=== PATIENT | male | born 1950 | race Caucasian/White ===

== ENCOUNTER → 2019-03-19 13:45 | Emergency (ER) | payer MEDICARE, BC ==
[2019-03-19 13:54] VITALS: BP 160/132
--- OUTSIDE RECORDS SUMMARY | 2019-03-19 14:03 | XMS REPORT | Continuity of Care Document ---
:1950 External Reference #:[id number] Author Name CARLOS Vogt Address [address] [place] [address] Care Team Providers Name Role Phone Rebecca Ludwig M.D. Care Team Information Water Pipe Installer Unavailable Rebecca Ludwig M.D. Primary Care Physician Unavailable Payers Date Identification Numbers Payment Provider Subscriber Policy Number: [id number] Medicare Enmanuel Swanson PayID: [id number] [address] [place] [address] Policy Number: [id number] [facility] Teresa Swanson PayID: [id number] [address] [address] [place] [address] Problems Active Problems Provider Date Diabetes mellitus Artur Conway MD Onset: 10/30/2018 Microscopic hematuria Artur Conway MD Onset: 11/27/2018 Kidney stone Artur Conway MD Onset: 11/27/2018 Neurogenic bladder rAtur Conway MD Onset: 11/27/2018 Increased frequency of urination Artur Conway MD Onset: 10/30/2018 Low back pain Artur Conway MD Onset: 10/30/2018 Difficulty passing urine Artur Conway MD Onset: 10/30/2018 Family history of prostate cancer Artur Conway MD Onset: 10/30/2018 Nocturia Artur Conway MD Onset: 10/30/2018 Dribbling of urine Artur Conway MD Onset: 10/30/2018 Urgent desire to urinate Artur Conway MD Onset: 10/30/2018 Family History Date Family Member(s) Observation Comments Father Heart Disease Mother Cancer Social History Type Date Description Comments Sex Unknown Marital Status Patient is Occupation Patient is retired Tobacco Use Start: Unknown Patient is a non-smoker Smoking Status Reviewed: 02/27/19 Patient is a non-smoker ETOH Use Currently consumes alcohol Allergies, Adverse Reactions, Alerts Active Allergies Reaction Severity Comments Date Lyrica Hives 11/21/2018 Inactive Allergies NKDA 10/30/2018 Medications Active Medications SIG Qnty Indications Ordering Provider Date Gabapentin Rebecca Ludwig, 300mg Capsules M.D. Atenolol Jamila Cervantes 25mg Tablets Flex HERNANDEZ Chlorthalidone Jamila Cervantes 25mg Tablets Flex HERNANDEZ Xarelto Take 1 Tablet By Unknown 20mg Tablets Mouth Every Day Duloxetine HCL Take 1 Capsule Unknown 60mg Caps DR By Mouth Two Part Times Daily Vitamin D 80374 units one Unknown (Cholecalciferol) time weekly 1000Unit Capsules Vitamin B Complex 1 tablet by Unknown Tablets mouth daily. Aspir-81 1 by mouth every Unknown 81mg Tablets DR day Tizanidine HCL Rebecca Ludwig, 2mg Tablets M.D. Hydrocodone-Acetaminophe Take 1 Tablet By Unknown n Mouth Three 10-325mg Tablets Times Daily May Take 4TH Tablet If Needed Maximum Daily Dose Of 4 Per Day History Medications Oxybutynin Chloride 1 by mouth every 90tabs [facility] 12/06/2018 - ER day MD Zoraida 02/26/2019 5mg Tablets ER 24HR Sulfamethoxazole/Trim 1 by mouth 30tabs [facility] 11/27/2018 - ethoprim DS MD Zoraida 11/28/2018 800-160mg Tablets Myrbetriq 1 by mouth every 90tabs R35.0 [facility] 11/27/2018 - 50mg Tablets day MD Zoraida 12/06/2018 ER 24HR Amoxicillin 1 cap orally in [facility] 11/21/2018 - 250mg office for MD Zoraida 11/22/2018 Capsules procedure Bactrim DS 1 by mouth twice 5tabs [facility] 11/21/2018 - 800-160mg a day for a total MD Zoraida 11/26/2018 Tablets of 5 pills. Baclofen Rebecca Ludwig, - 10mg Tablets M.D. 11/26/2018 Oxycodone HCL Rebecca Ludwig, - 10mg M.D. 11/26/2018 Tablets Metformin HCL ER Take 2 Tablets By Unknown - 500mg Mouth Two Times 11/26/2018 Tablets ER 24HR Daily Nortriptyline HCL Take 1 To 3 Unknown - 10mg Capsule By Mouth 11/26/2018 Capsules Every Night AT Bedtime as Needed For Sleep Amoxicillin 1 cap orally in Artur H - 250mg office for MD Zoraida 11/27/2018 Capsules procedure Vital Signs Date Vital Result Comment 02/27/2019 8:36am Height 66 inches 5'6" Weight 247.00 lb Weight 112.039 kg BMI (Body Mass Index) 39.9 kg/m2 BP Systolic 97 mmHg BP Diastolic 66 mmHg Heart Rate 56 /min Post Void Residual ml 0 Bladder Scanner 11/27/2018 8:15am Height 66 inches 5'6" Weight 253.00 lb Weight 114.761 kg BMI (Body Mass Index) 40.8 kg/m2 BP Systolic 147 mmHg BP Diastolic 85 mmHg Heart Rate 85 /min Respiratory Rate 16 /min Post Void Residual ml 3 Bladder Scanner, Indication: 11/21/2018 8:37am Height 66 inches 5'6" Weight 269.00 lb Weight 122.018 kg BMI (Body Mass Index) 43.4 kg/m2 BP Systolic 110 mmHg BP Diastolic 68 mmHg Heart Rate 75 /min Respiratory Rate 16 /min Post Void Residual ml 9 Bladder Scanner, Indication: frequency 11/09/2018 12:32pm Post Void Residual ml 7ccRAD 10/30/2018 8:15am Height 66 inches 5'6" Weight 267.00 lb Weight 121.111 kg BMI (Body Mass Index) 43.1 kg/m2 BP Systolic 117 mmHg BP Diastolic 75 mmHg Heart Rate 73 /min Post Void Residual ml 60 Results Test Date Facility Test Result H/L Range Note 230 Ua Routine 02/27/2019 [facility] Ua Glucose Negative REF TO DR ADDRESS ON ORDER FOR (315)- - Ua Protein Negative Ua Nitrite Negative Ua Leuko Negative Ua Blood Trace-intact * Ua Color Not Entered Ua Ketones Negative Ua Clarity Not Entered Ua Specific [place] 1.015 1.003-1.030 Ua PH 7.0 5.0-7.5 Ua Bilirubin Negative Ua Urobilinogen 0.2 E.U./dL 0.0-1.0 Urine Cytology 11/30/2018 [facility] Clinical History urgency. Recent N 1 [address] [facility] <SEE NOTE> JAMIE Acosta [address] [phone] Specimen Adequacy Satisfactory for <SEE NOTE> N 2 BodySite Voided - Clean C <SEE NOTE> N 3 Gross Description Received in a sp <SEE NOTE> N 4 Microscopic Description Moderate numbers <SEE NOTE> N 5 Final Diagnosis NEGATIVE FOR HIG <SEE NOTE> N 6 CPTCode 85317 N PDF Report SEE IMAGE 230 Ua Routine 11/27/2018 [facility] Ua Glucose Negative REF TO DR ADDRESS ON ORDER FOR (315)- - Ua Protein Trace * Ua Nitrite Negative Ua Leuko Trace * Ua Blood 2+ * Ua Color Not Entered Ua Ketones Negative Ua Clarity Not Entered Ua Specific [place] >=1.030 1.003-1.030 Ua PH 6.0 5.0-7.5 Ua Bilirubin 1+ * Ua Urobilinogen 0.2 E.U./dL 0.0-1.0 Xray 11/22/[address] Ivu 2mm rrc (315)- - Laboratory test 11/21/2018 [facility] Urine Culture SPECIMEN no growth 7 finding POB FX# [id number] DESCRIP <SEE [phone] NOTE> 230 Ua Routine 11/21/2018 [facility] Ua Glucose Negative REF TO DR ADDRESS ON ORDER FOR (315)- - Ua Protein 3+ * Ua Nitrite Positive * Ua Leuko 3+ * Ua Blood 3+ * Ua Color Not Entered Ua Ketones Trace * Ua Clarity Not Entered Ua Specific [place] 1.025 1.003-1.030 Ua PH 6.5 5.0-7.5 Ua Bilirubin 2+ * Ua Urobilinogen 1.0 E.U./dL 0.0-1.0 230 Ua Routine 11/21/2018 [facility] Ua Glucose Negative REF TO DR ADDRESS ON ORDER FOR (315)- - Ua Protein Negative Ua Nitrite Negative Ua Leuko Negative Ua Blood 2+ * Ua Color Not Entered Ua Ketones Negative Ua Clarity Not Entered Ua Specific [place] 1.020 1.003-1.030 Ua PH 7.0 5.0-7.5 Ua Bilirubin Negative Ua Urobilinogen 0.2 E.U./dL 0.0-1.0 Xray 11/09/2018 [facility] US Pelvic 41g, 7cc PVR [address] [facility] ([place] [address] [place]) [phone] 107 Ua Routine 10/30/2018 [facility] Ua Glucose Negative REF TO DR AKIN ON ORDER FOR (171)- - Ua Protein Negative Ua Nitrite Negative Ua Leuko Negative Ua Blood Negative Ua Color Not Entered Ua Ketones Negative Ua Clarity Not Entered Ua Specific [place] 1.025 1.003-1.030 Ua PH 7.0 5.0-7.5 Ua Bilirubin Negative Ua Urobilinogen 0.2 E.U./dL 0.0-1.0 BUN And Creatinine 09/26/2018 Outside Facility BUN - Urea Nitrogen 12 6- 26 (269)- - Creatinine 0.7 0.5-1.4 Laboratory test finding 06/28/2018 Outside Facility PSA 2.480 0.000- 4.000 (315)- - 1 urgency. Recent catheter. cysto: cath change only R35.0 R31.29 2 Satisfactory for evaluation. 3 Voided - Clean Catch 4 Received in a specimen container, labeled with the patients name and , is Clear Yellow fluid consistent with urine, measuring approximately 90 ml. 5 Moderate numbers of red cells present. Moderate numbers of neutrophils present. 6 NEGATIVE FOR HIGH-GRADE UROTHELIAL CARCINOMA. 7 SPECIMEN DESCRIPTION URINE, COLLECTION METHOD NOT SPECIFIED CULTURE RESULTS NO GROWTH REPORT STATUS FINAL 11/22/2018 Procedures Date Code Description Status 02/27/2019 83088 Bladder Scan, Post Voiding Residual Urine Completed 11/27/2018 21084 Cystourethroscopy, Separate Procedure Completed 11/27/2018 28786 Bladder Scan, Post Voiding Residual Urine Completed 11/27/2018 73427 Urodynamics, Complex Uroflowmetry Eg Calibrated Electronic Completed Office 11/22/2018 65171 Bladder Irrigation, Simple Lavage And/Or Instillation Completed 11/21/2018 60850 Bladder Scan, Post Voiding Residual Urine Completed 11/21/2018 12739 Urodynamics, Voiding Pressure Studies Intra Abdominal Completed Global 11/21/2018 05788 Urodynamics, Electromyography Studies EMG Of Anal Or Completed Urethral S 11/21/2018 61160 Urodynamics, Complex Uroflowmetry Eg Calibrated Electronic Completed Office 11/21/2018 35539 Complex Cystometrogram, With Voiding Pressure Studies Completed Global 11/09/2018 84591 Ultrasound- Pelvic Limited Tech Completed 11/09/2018 79530 Ultrasound- Pelvic Limited Tech Completed 10/30/2018 67758 Bladder Scan, Post Voiding Residual Urine Completed Encounters Type Date Location Provider Dx Diagnosis Office Visit 02/27/2019 [facility]/ Octavio Maldonado, R35.0 Frequency of 8:40a Urology PA micturition M54.5 Low back pain N20.0 Calculus of kidney N40.1 Benign prostatic hyperplasia with lower urinary tract symp Office Visit 11/27/2018 8:20a [facility]/ Octavio Almanza R35.0 Frequency of Urology MD Zoraida micturition M54.5 Low back pain R35.1 Nocturia Z80.42 Family history of malignant neoplasm of prostate R39.15 Urgency of urination 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, not elsewhere classified N20.0 Calculus of kidney R31.29 Other microscopic hematuria Office Visit 11/21/2018 2:00p [facility]/ Octavio Woods Nurse R39.15 Urgency of Urology urination R35.0 Frequency of micturition Office Visit 10/30/2018 8:20a [facility]/ Octavio Almanza R39.15 Urgency of Urology MD Zoraida urination N39.43 Post-void dribbling R35.1 Nocturia Z80.42 Family history of malignant neoplasm of prostate R39.198 Other difficulties with micturition M54.5 Low back pain R35.0 Frequency of micturition Plan of Treatment Future Appointment(s):07/16/2019 9:40 am - [facility] at [facility] Ocybibw10/11/2019 9:00 am - [facility] RODRIGUE[facility] at [facility]/ [facility] Ezhjboy40/19/2019 8: 40 am - CARLOS Vogt at [facility]/ [facility] Sqvlcfc3002/27/2019 - Sia Maldonado PAR35.0 Frequency of micturitionComments:Patient's frequency has improved. No retention noted via bladder scanner. He is no longer taking Myrbetriq. I did advise patient that Myrbetriq takes longer to work than a few days but as he feels symptoms have resolved will not pursue further. All questions addressed to patient's satisfaction.M54.5 Low back painComments: Chronic for patient. No CVA tenderness. Not likely to be in nature.N20.0 Calculus of kidneyComments:X-ray reports were personally reviewed during the office visit today. CT IVU in November was noting a 2mm right renal calculi. Reviewed these findings again with patient today. Encouraged to increase water intake and avoid excessive salt intake. Patient will have renal U/S prior to next scheduled appointment to evaluate for worsening stone burden.N40.1 Benign prostatic hyperplasia with lower urinary tract symptomsComments:PSA/AGAPITO are up to date at last visit. Patient to follow up in July to evaluate at that time.AllFollow up:-- Follow up in July with renal U/S and psa prior
== END | disposition left against medical advice (07) ==
LOC: ED 13:45
DX: R52 Pain, unspecified (principal); Z53.21 Procedure and treatment not carried out due to patient leaving prior to being seen by health care provider

== ENCOUNTER 2019-09-26 06:03 | Day surgery (SDC) | payer MEDICARE, BC ==
[~2019-09-26 06:03] MED LIST: Buffered Lidocaine 1% SYRIN* 1 ML/SYRINGE INTRADERM ONE; Lactated Ringers 1000 ML Bag* 1,000 ML IV SCH
[2019-09-26] MEDS ORDERED: ceFAZolin 2 GM PREMIX in ORs 2 GM/50 ML BAG ONE (06:44)
[2019-09-26] MEDS ORDERED: Propofol* 10 MG/ML 20 ML BTL ONE (06:47)
[2019-09-26] MEDS ORDERED: EPHEDrine (Pressors)* 50 MG/ML VIAL ONE (06:47)
[2019-09-26] MEDS ORDERED: Succinylcholine* 20 MG/ML 10 ML VIAL ONE (06:47)
[2019-09-26] MEDS ORDERED: fentaNYL* 50 MCG/ML 2 ML VIAL (100 MCG VIAL) ONE (06:47)
[2019-09-26] MEDS ORDERED: Midazolam* 1 MG/ML 2 ML VIAL (2 MG) ONE ×2 (06:47→07:46)
[2019-09-26] MEDS ORDERED: Ondansetron INJ* 2 MG/ML VIAL ONE (06:47)
[2019-09-26] MEDS ORDERED: Lidocaine 1% INJ* 10 MG/ML 30 ML SDV ONE (07:14)
[2019-09-26] MEDS ORDERED: Bupivacaine 0.25% SDV* 30 ML ONE (07:14)
[2019-09-26] MEDS ORDERED: Naloxone* 0.4 MG/ML 1 ML VIAL IV PRN (08:02)
[2019-09-26 10:08] VITALS: BP 152/88
--- NOTE | 2019-09-26 23:15 | OP ---
DATE OF OPERATION: 09/26/19 [facility] DATE OF : 48 SURGEON: Santosh Menendez MD [employer] H[employer]ING MACHINE OPERATOR: None. ANESTHESIOLOGIST: Dr. Boo. ANESTHESIA: Local MAC. PRE-OP DIAGNOSIS: Failed back syndrome. POST-OP DIAGNOSIS: Failed back syndrome. OPERATIVE PROCEDURE: Percutaneous dorsal column stimulator trial lead placement. INDICATIONS: The patient is a 69-year-old male who has a history of failed back syndrome. He has low back and radiating leg pain bilaterally. The patient has failed conservative measures and is scheduled today to undergo percutaneous dorsal column stimulator trial lead placement. The patient has held his Xarelto for 4 days pending today's procedure and I explained the risks of the procedure including nerve injury, postdural puncture headache, bleeding, infection, and after going over the risks, benefits, and alternatives, informed consent was obtained. ESTIMATED BLOOD LOSS: Minimal. FLUIDS: Lactated Ringer's per Anesthesia. DESCRIPTION OF PROCEDURE: The patient was brought to the operative suite, placed prone on the operative table. His back was prepped and draped in the usual sterile fashion. Using fluoroscopy, I identified the T12-L1 interspace and anesthetized the skin and subcutaneous tissues over that area with 1% lidocaine mixed with 0.25% Marcaine. An #11 skin blade was used to make a skin queenie. I then used a 14-gauge Coude epidural needle and directed it under fluoroscopic guidance to the T12-L1 interspace. The epidural space was identified using loss of resistance to air technique. There was no CSF, blood, or paresthesias noted. There was negative aspiration. I proceeded to pass a 16-contact lead into the epidural space and guided it to the right of midline where the top of the lead was at the top of T7 vertebral body. Lateral fluoroscopic view was taken, which showed good posterior placement in the epidural space. I then anesthetized the skin and subcutaneous tissues over the left of midline using 1% lidocaine and 0.25% Marcaine over the L2 pedicle. I then used an #11 blade and made a skin queenie and a 14-gauge Coude epidural needle was directed under fluoroscopic guidance to the T12-L1 interspace. I identified the epidural space using loss of resistance to air technique. There was no CSF, blood, or paresthesias noted. There was negative aspiration. A 16- contact lead was passed into the epidural space and laid parallel to the other lead to the left of midline. Lateral fluoroscopic view was identified, which showed good posterior placement in the epidural space. I then began testing the leads and we had excellent coverage of the patient's back and lower extremity pain with the present lead placement. The stylets and needles were withdrawn and the leads were anchored to the skin using the silicone anchoring boot and the 2-0 Prolene sutures. I then used Steri-Strips to secure the leads and anchors to the skin. Sterile dressings were applied and the patient was brought to the recovery room in stable condition where his stimulator was programmed by the [email or web address] community health program representative. He will call with any questions or concerns. He was instructed to remain off his Xarelto until he is seen back in the clinic for lead removal. He will call with any questions or concerns. He has an appointment to follow up with me in the office next week. [id number]/CPS #: [id number] TIAGO
== END 2019-09-26 10:05 | disposition home or self-care (01) ==
LOC: OR 06:03
PROVIDERS: ATTEND Anesthesiology Pain Medicine
DX: M96.1 Postlaminectomy syndrome, not elsewhere classified (principal); I48.91 Unspecified atrial fibrillation; E11.9 Type 2 diabetes mellitus without complications; E78.5 Hyperlipidemia, unspecified; I10 Essential (primary) hypertension; G47.33 Obstructive sleep apnea (adult) (pediatric); K21.9 Gastro-esophageal reflux disease without esophagitis; M19.90 Unspecified osteoarthritis, unspecified site; G62.9 Polyneuropathy, unspecified; Z79.84 Long term (current) use of oral hypoglycemic drugs; M54.9 Dorsalgia, unspecified; E55.9 Vitamin D deficiency, unspecified; Z79.01 Long term (current) use of anticoagulants
CPT/HCPCS: 77003; C1778; C1897; J0330; J0690; J2250; J2405; J2704; J3010; J3490

== ENCOUNTER 2022-04-05 22:52 | Observation (INO) ==
[2022-04-06] MEDS ORDERED: Lactated Ringers 1000 ml BAG IV.FLUID IV ONE (01:09)
[2022-04-06] MEDS ORDERED: Piperacillin/Tazobac ADVAN 3.375 GM in NS 0.9% 100 ml BAG 100 ML IV ONE ×2 (01:11→09:00)
[2022-04-06 01:53] LABS: Activated Partial Thrombo Time 32.3 seconds (26.0-38.0); INR 0.96 (0.89-1.11)
[2022-04-06 02:12] LABS: ABS Eosinophils 0.3 10^3/ul (0-0.6); ABS Monocytes 0.9 10^3/ul (0-0.8); ABS Neutrophils 4.9 10^3/ul (1.5-7.7); Eosinophil % 3.7 %; Hematocrit 38 % (42-52); Hemoglobin 13.1 g/dL (14.0-18.0); Lymphocyte % 24.5 %; Mean Corpuscular HGB Conc 34 g/dL (31-36); Mean Corpuscular Hemoglobin 34 pg (27-31); Mean Corpuscular Volume 98 fL (80-94); Nucleated Red Blood Cells % 0.1; Platelet Count 219 10^3/uL (150-450); Red Cell Distribution Width 15 % (10-15); White Blood Count 8.2 10^3/uL (3.5-10.8)
[2022-04-06 02:48] LABS: Albumin 4.1 g/dL (3.2-5.2); Albumin/Globulin Ratio 1.6 (1-3); C Reactive Protein 25.23 mg/L (<8.01); Calcium 8.9 mg/dL (8.6-10.3); Globulin 2.6 g/dL (2-4); Potassium 4.9 mmol/L (3.5-5.0); Total Bilirubin 0.3 mg/dL (0.2-1.0); Total Protein 6.7 g/dL (6.4-8.9); eGFR CKD-EPI 93.3 (>60)
[2022-04-06] MEDS ORDERED: Vancomycin 1,500 MG in NS 0.9% 250 ml 250 ML IVPB ONE (03:00)
[2022-04-06 03:10] LABS: High Sensitivity Troponin 1 Hr 4 pg/mL (<20)
[2022-04-06 03:14] LABS: Urine Appearance Clear; Urine Bilirubin Negative (Negative); Urine Blood Negative (Negative); Urine Color Yellow; Urine Glucose Negative (Negative); Urine Ketones Negative (Negative); Urine Nitrite Negative (Negative); Urine Protein Negative (Negative); Urine Urobilinogen 0.2 (Negative) (Negative); Urine pH 5.5 (5.0-9.0)
[2022-04-06] MEDS ORDERED: Zosyn per Pharmacy NOTE FOLLOW UP SCH (05:00)
[2022-04-06] MEDS ORDERED: Vancomycin per Pharmacy 1 EA NOTE FOLLOW UP SCH (05:00)
[2022-04-06] MEDS: Enoxaparin 40 MG/0.4 ML SYR SUBCUT SCH (06:13)
[2022-04-06] MEDS ORDERED: ZOSYN 3.375 GM Q8H per EXTENDED INFUSION IV ONE ×2 (06:30→09:00)
[2022-04-06] MEDS ORDERED: IRON 18 MG PO SCH (09:00)
[2022-04-06] MEDS: Morphine ER 30 mg TAB ** extended release PO SCH ×3 (10:15→19:52)
[2022-04-06] MEDS: DULoxetine DR 60 mg CAP PO SCH ×2 (10:16→19:51)
[2022-04-06] MEDS: HYDROcodone/Acetamin 10/325 TAB (NF) PO PRN ×2 (13:48→19:49)
[2022-04-06] MEDS ORDERED: ZOSYN 3.375 GM Q8H per EXTENDED INFUSION IV SCH (17:00)
[2022-04-06] MEDS ORDERED: Vancomycin 1,000 MG in NS 0.9% 250 ml 250 ML IVPB ONE (17:00)
[2022-04-06] MEDS ORDERED: Vancomycin 1,250 MG in NS 0.9% 250 ml 250 ML IVPB SCH (18:00)
[2022-04-06] MEDS: Amoxicillin/Clavul 875/125 TAB (Augmentin 875 tab) PO SCH (19:51)
[2022-04-06] MEDS ORDERED: Amoxicillin/Clavul 500/125 TAB (Augmentin 500 mg tab) PO SCH (21:00)
[2022-04-06] MEDS ORDERED: Aspirin EC 81 mg TAB.EC (enteric coated) PO SCH (21:00)
[2022-04-06] MEDS ORDERED: [UNRECOGNIZED DRUG - OTHER] PO SCH (21:00)
[2022-04-07 05:57] LABS: ABS Eosinophils 0.2 10^3/ul (0-0.6); ABS Lymphocytes 0.9 10^3/ul (1.0-4.8); ABS Monocytes 0.7 10^3/ul (0-0.8); ABS Neutrophils 4.9 10^3/ul (1.5-7.7); Eosinophil % 2.4 %; Hematocrit 38 % (42-52); Hemoglobin 12.9 g/dL (14.0-18.0); Lymphocyte % 12.9 %; Mean Corpuscular HGB Conc 33 g/dL (31-36); Mean Corpuscular Hemoglobin 32 pg (27-31); Mean Corpuscular Volume 96 fL (80-94); Mean Platelet Volume 7.7 fL (7.4-10.4); Platelet Count 212 10^3/uL (150-450); Red Blood Count 3.99 10^6 /uL (4.18-5.48); Red Cell Distribution Width 14 % (10-15); White Blood Count 6.6 10^3/uL (3.5-10.8)
[2022-04-07] MEDS: Enoxaparin 40 MG/0.4 ML SYR SUBCUT SCH (06:24)
[2022-04-07 06:28] LABS: Calcium 9.1 mg/dL (8.6-10.3); Potassium 4.7 mmol/L (3.5-5.0); eGFR CKD-EPI 97.5 (>60)
[2022-04-07] MEDS: Morphine ER 30 mg TAB ** extended release PO SCH (08:11)
[2022-04-07] MEDS: DULoxetine DR 60 mg CAP PO SCH (08:11)
[2022-04-07] MEDS: Amoxicillin/Clavul 875/125 TAB (Augmentin 875 tab) PO SCH (08:11)
[2022-04-07 13:09] VITALS: BP 148/75
[2022-04-08] MEDS ORDERED: Vancomycin Trough Check NOTE FOLLOW UP ONE (05:30)
== END 2022-04-07 12:35 | disposition home or self-care (01) ==
LOC: EDHOLD 22:52 → ED 22:52 → SUATTDRO 04-06 03:26 → EDHOLD 04-06 08:17 → MEDTELE 04-06 08:41
PROVIDERS: ADMIT Internal Medicine; ATTEND Hospitalist